=== PATIENT | male | born 1995 | race Caucasian/White ===

== ENCOUNTER 2016-12-26 17:20 | Emergency (ER) | payer BC ==
[~2016-12-26] VITALS: Ht 175.3 cm; Wt 108.9 kg
[2016-12-26 17:45] VITALS: BP 138/81
--- NOTE | 2016-12-26 18:25 | PHYS DOC ---
Past Medical History Past Medical History: Other Additional Past Medical Histor: CEREBRAL PALSY Past Surgical History: Other Additional Past Surgical Histo: BACK SX, PILONYDIAL CYST Alcohol Use: Rarely Drug Use: None Adult General Chief Complaint Chief Complaint: ANKLE PROBLEM [place] [employer] HPI Patient is a 21 year old male presents to the emergency department stating that he fell down 3 steps last night. He states that he is having pain on the lateral right ankle and along the fifth metatarsal area of the foot on the right. He states that he has increased pain with ambulation in which he is using a cane to ambulate. Patient also states that he has a disability due to right knee pain and discomfort. He denies any further pain or discomfort that's abnormal from his previous knee problems. He states he has taken 400 mg of ibuprofen this morning for the pain and discomfort with minimal relief. He states he did try to place ice packs on the area at work once. Review of Systems Review of Systems Constitutional: Denies fever or chills [] Eyes: Denies change in visual acuity, redness, or eye pain [] HENT: Denies nasal congestion or sore throat [] Respiratory: Denies cough or shortness of breath [] Cardiovascular: No additional information not addressed in HPI [] GI: Denies abdominal pain, nausea, vomiting, bloody stools or diarrhea [] : Denies dysuria or hematuria [] Musculoskeletal: Denies back pain. Right ankle/right foot pain Integument: Denies rash or skin lesions [] Neurologic: Denies headache, focal weakness or sensory changes [] Endocrine: Denies polyuria or polydipsia [] Current Medications Current Medications Current Medications Medications (Trade) Dose Ordered Sig/Doe Start Time Stop Time Status Last Admin Dose Admin Ibuprofen (Motrin) 800 mg 1X ONCE 12/26/16 18:30 12/26/16 18:31 DC 12/26/16 18:47 800 MG Allergies Allergies Allergies Coded Allergies Type Severity Reaction Last Updated Verified amoxicillin Allergy Intermediate 12/26/16 No clavulanic acid Allergy Intermediate 12/26/16 No prochlorperazine Allergy Intermediate 12/26/16 No Physical Exam Physical Exam Constitutional: Well developed, well nourished, no acute distress, non-toxic appearance. [] HENT: Normocephalic, atraumatic, bilateral external ears normal, oropharynx moist, no oral exudates, nose normal. [] Eyes: PERRLA, EOMI, conjunctiva normal, no discharge. [] Neck: Normal range of motion, no tenderness, supple, no stridor. [] Cardiovascular:Heart rate regular rhythm, no murmur [] Lungs & Thorax: Bilateral breath sounds clear to auscultation [] Skin: Warm, dry, no erythema, no rash. [] Extremities: Right lateral ankle, right fifth metatarsal tenderness, no cyanosis , no clubbing, ROM intact, no edema. Minimal swelling noted no redness no discoloration or ecchymosis noted/ No abnormality to the knee. Neurologic: Alert and oriented X 3, normal motor function, normal sensory function, no focal deficits noted. [] Psychologic: Affect normal, judgement normal, mood normal. [] Current Patient Data Vital Signs Vital Signs Date Time Temp Pulse Resp B/P (MAP) Pulse Ox O2 Delivery O2 Flow Rate FiO2 12/26/16 17:45 98.9 72 18 99 Room Air 98.9 EKG EKG [] Radiology/Procedures Radiology/Procedures [] Course & Med Decision Making Course & Med Decision Making Pertinent Labs and Imaging studies reviewed. (See chart for details) X-rays were negative for any bony abnormalities per Dr. Lee. Patient will be placed in Konstantin wrap and an Air-Stirrup splint with recommendations for ice packs on 20 minutes off 20 minutes several times a day elevation as much as possible. Patient was encouraged to use Tylenol or ibuprofen for pain and discomfort. Recommended following up with orthopedic within the next week. Signs and symptoms to return back to emergency department as been provided. Recommended wearing the Konstantin wrap for the next 5-7 days in the Air-Stirrup splint for the next 7-10 days. Patient states he has a cane in which she was using for ambulation recommend that he could use this for the next few days. All questions and concerns was answered at patient's bedside. [] Dragon Disclaimer Dragon Disclaimer This electronic medical record was generated, in whole or in part, using a voice recognition dictation system. Departure Departure Impression: Primary Impression: Right ankle sprain Additional Impression: Right foot sprain Disposition: 01 HOME, SELF-CARE Condition: STABLE Referrals: UNKNOWN PCP NAME (PCP) Patient Instructions: Ankle Sprain, [id number], Foot Sprain-Brief Additional Instructions: Your x-rays were negative for any bony abnormalities. Wear the Konstantin wrap for the next 5-7 days in the Air-Stirrup splint for the next 7 -10 days. Ice packs on 20 minutes off 20 minutes several times a day. Elevation as much as possible. Tylenol or ibuprofen for pain and discomfort. Follow-up with orthopedic within the next week. Return back to emergency prior signs symptoms of become worse. Problem Qualifiers Primary Impression: Right ankle sprain Encounter type: initial encounter Involved ligament of ankle: unspecified ligament Qualified Codes: S93.401A - Sprain of unspecified ligament of right ankle, initial encounter Additional Impression: Right foot sprain Encounter type: initial encounter Qualified Codes: S93.601A - Unspecified sprain of right foot, initial encounter WATSON DOE APRN Dec 26, 2016 18:25
[2016-12-26] MEDS ORDERED: IBUPROFEN 800 MG TABLET. PO ONE (18:30)
--- NOTE | 2016-12-27 08:19 | RAD ---
3 views right ankle 12/26/2016 8:16 PM Indication: fell down stairs Comparison: None Findings: There is no fracture or dislocation identified. Articular surfaces appear to be uninterrupted. No gross soft tissue changes are identified. Impression: No radiographic evidence of acute osseous abnormality
--- NOTE | 2016-12-27 08:29 | RAD ---
EXAM: Right foot 3 views. HISTORY: Right foot pain after a fall. COMPARISON: None. FINDINGS: Pes planus deformity is noted. There is mild hallux valgus. No fractures are identified. Joint spaces are maintained. IMPRESSION: 1. No fracture. 2. Pes planus and mild hallux valgus.
== END 2016-12-26 19:27 | disposition home or self-care (01) ==
LOC: ER 17:20
DX: S93.401A Sprain of unspecified ligament of right ankle, initial encounter (principal); S93.601A Unspecified sprain of right foot, initial encounter; M25.561 Pain in right knee; G80.9 Cerebral palsy, unspecified; Z88.1 Allergy status to other antibiotic agents; Z88.8 Allergy status to other drugs, medicaments and biological substances; W10.9XXA Fall (on) (from) unspecified stairs and steps, initial encounter; Y93.89 Activity, other specified; Y92.89 Other specified places as the place of occurrence of the external cause; Y99.8 Other external cause status
CPT/HCPCS: 29515; 73610; 73630; 99284